=== PATIENT | female | born 1930 | race Caucasian/White ===

== ENCOUNTER 2016-09-26 16:35 | Emergency (ER) | payer OTHER ==
[2016-09-26 17:05] VITALS: BP 132/64; PULSE 86; TEMP 98.1; BMI 19.5
[2016-09-26] MEDS ORDERED: DIPHTH,PERTUSS(ACELL),TET 0.5 ML DISP.SYRIN IM ONE (17:22)
--- NOTE | 2016-09-26 17:24 | PDOC ---
History of Present Illness - General History Source: Patient, Family (daughter) - History of Present Illness Initial Comments: 09/26/16 17:32 The patient is a 86 year old female, accompanied by daughter, with a past medical history or chronic hip pain who presents to the ED with right arm laceration since yesterday. As per daughter, the patient fell and scraped her right arm against a night stand yesterday. Patient denies getting stitches. She also reports her hip pain is worsened secondary to fall. Denies fevers or chills. Denies focal numbness, weakness, or tingling. Denies chest pain or shortness of breath. Denies any other symptoms. 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) Thyroid Disease: Yes - Psycho/Social/Smoking Cessation Hx Anxiety: Yes Suicidal Ideation: No Smoking History: Never smoked Hx Alcohol Use: No Drug/Substance Use Hx: No Substance Use Type: None <Hunter Matthews - Last Filed: 10/08/16 07:35> - Past Medical History Allergies/Adverse Reactions: Allergies Allergy/AdvReac Type Severity Reaction Status Date / Time ciprofloxacin Allergy Severe SEIZURE Verified 09/26/16 16:52 levofloxacin [From Levaquin] Allergy Severe Verified 09/26/16 16:52 Penicillins Allergy Severe Difficulty Verified 09/26/16 16:52 Breathing Home Medications: Ambulatory Orders Amlodipine Besylate 09/26/16 Esomeprazole Magnesium [Nexium 24Hr] 20 mg PO DAILY 09/26/16 Lorazepam [Ativan] 0.5 mg PO HS 09/26/16 Magnesium Oxide 500 mg PO BID 09/26/16 Oxybutynin Chloride 09/26/16 Potassium Chloride 09/26/16 Synthroid 09/26/16 Review of Systems - Review of Systems Able to Perform ROS?: Yes Comments:: 09/26/16 17:33 CONSTITUTIONAL: No reported: Fever, Chills, Diaphoresis, Generalized Weakness, Malaise, Loss of Appetite HEENT: No reported: Rhinorrhea, Nasal Congestion, Throat Pain, Throat Swelling, Difficulty Swallowing, Mouth Swelling, Ear Pain, Eye Pain, Visual Changes CARDIOVASCULAR: No reported: Chest Pain, Syncope, Palpitations, Irregular Heart Rate, Lightheadedness, Peripheral Edema RESPIRATORY: No reported: Cough, Shortness of Breath, SOB with Exertion, Orthopnea, Wheezing , Stridor, Hemoptysis GASTROINTESTINAL: No reported: Abdominal pain, Abdominal Distension, Nausea, Vomiting, Diarrhea, Constipation, Melena, Hematochezia GENITOURINARY: No reported: Dysuria, Frequency, Urgency, Hesitancy, Flank Pain, Genital Pain MUSCULOSKELETAL: No reported: Myalgia, Arthralgia, Joint Swelling, Back pain, Neck Pain SKIN: + right arm laceration No reported: Rash, Itching, Pallor HEMEATOLOGIC/IMMUNOLOGIC: No reported: Easy Bleeding, Easy Bruising, Lymphadenopathy, Frequent infections ENDOCRINE: No reported: Unexplained Weight Gain, Unexplained Weight Loss, Heat Intolerance , Cold Intolerance NEUROLOGIC: No reported: Headache, Focal Weakness, Paresthesias, Vertigo, Lightheadedness, Unsteady Gait, Seizure, Mental Status Changes, Incontinence PSYCHIATRIC: No reported: Anxiety, Depression All Other Systems: Reviewed and Negative <Jacy Christina - Last Filed: 09/26/16 17:32> *Physical Exam - Vital Signs Last Vital Signs Temp Pulse Resp BP Pulse Ox 98.1 F 86 16 132/64 97 09/26/16 16:50 09/26/16 16:50 09/26/16 16:50 09/26/16 16:50 09/26/16 16:50 - Physical Exam Comments: 09/26/16 17:33 GENERAL: Well developed, well nourished. Awake and alert. No acute distress. HEENT: Normocephalic, atraumatic. PERRLA, EOMI. No conjunctival pallor. Sclera are non- icteric. Moist mucous membranes. Oropharynx is clear. NECK: Supple. Full ROM. No JVD. Carotid pulses 2+ and symmetric, without bruits. No thyromegaly. No lymphadenopathy. CARDIOVASCULAR: Regular rate and rhythm. No murmurs, rubs, or gallops. Distal pulses are 2+ and symmetric. PULMONARY: No evidence of respiratory distress. Lungs clear to auscultation bilaterally. No wheezing, rales or rhonchi. ABDOMINAL: Soft. Non-tender. Non-distended. No rebound or guarding. No organomegaly. Normoactive bowel sounds. MUSCULOSKELETAL Normal range of motion at all joints. No bony deformities or tenderness. No CVA tenderness. EXTREMITIES: No cyanosis. No clubbing. No edema. No calf tenderness. SKIN: + 10 cm skin tear of the right lateral ulnar forearm, beginning just below the elbow and not into the bursa. in the skin tear was a 1cm laceration that was superficial, no distal or sensor motor deficits, no swelling, erythema, induration or drainage from the wound that would suggest a fracture or infection in present. no other injuries including injuries to neck, head, chest , abdomen, pelvis, shoulders, hips NEUROLOGICAL: Alert, awake, appropriate. Cranial nerves 2-12 intact. No deficits to light touch and temperature in face, upper extremities and lower extremities. No motor deficits in the in face, upper extremities and lower extremities. Normoreflexic in the upper and lower extremities. Normal speech. Toes are down- going bilaterally. Gait is normal without ataxia. PSYCHIATRIC: Cooperative. Good eye contact. Appropriate mood and affect. <Jacy Christina - Last Filed: 09/26/16 17:32> - Vital Signs Last Vital Signs Temp Pulse Resp BP Pulse Ox 98.1 F 86 16 132/64 97 09/26/16 16:50 09/26/16 16:50 09/26/16 16:50 09/26/16 16:50 09/26/16 16:50 <Hunter Matthews - Last Filed: 10/08/16 07:35> Medical Decision Making - Medical Decision Making 10/08/16 07:33 Procedure note: Repair of laceration Because this was an old injury, primary suture closure was felt to be a risk of infection. Most of the area of the wound was a superficial skin tear, except for approximately 1-2 cm laceration within the skin tear, of the proximal forearm. This was superficial, did not involve any deep structures, there was no devitalized tissue, and no obvious punctures. Neurological exam to the upper extremity was intact. Pulses and capillary refill were normal The wound was scrubbed well and irrigated with normal saline. There was hemostasis. The edges were loosely approximated with Steri-Strips, with good result. Bacitracin was applied, 4 x 4 and Jah were used as dressing, and the patient was advised to return for a wound check in 2 days, sooner if there was increased pain or sign of infection. She was fully ambulatory and in no distress upon discharge with her daughter to follow-up as directed. <Hunter Matthews - Last Filed: 10/08/16 07:35> *DC/Admit/Observation/Transfer - Attestations Scribe Attestion: 09/26/16 17:33 Documentation prepared by Jacy Christina, acting as medical billing specialist for Hunter Rivera MD <Jacy Christina - Last Filed: 09/26/16 17:32> - Discharge Dispostion Admit: No <Hunter Matthews - Last Filed: 10/08/16 07:35> Diagnosis at time of Disposition: Laceration of forearm Qualifiers: Encounter type: sequela Laterality: right Qualified Code(s): S51.811S - Laceration without foreign body of right forearm, sequela - Discharge Dispostion Disposition: HOME Condition at time of disposition: Good - Referrals Referrals: Leon Anderson [Primary Care Provider] - 3 days - Patient Instructions Printed Discharge Instructions: DI for Laceration Repair Steri-Strips Additional Instructions: Keep absolutely clean and dry. Rest and elevate. Recheck immediately if sign of infection. Consider wound check to monitor healing process in 3-4 days.
== END 2016-09-26 17:51 | disposition home or self-care (01) ==
LOC: FER 16:35
PROC: 3E0234Z Introduction of Serum, Toxoid and Vaccine into Muscle, Percutaneous Approach (ICD-10-PCS; principal; 2016-09-26)
DX: S51.811A Laceration without foreign body of right forearm, initial encounter (principal); W18.30XA Fall on same level, unspecified, initial encounter; Y93.9 Activity, unspecified; Y92.9 Unspecified place or not applicable; I10 Essential (primary) hypertension; R56.9 Unspecified convulsions; Z85.3 Personal history of malignant neoplasm of breast; Z85.43 Personal history of malignant neoplasm of ovary
CPT/HCPCS: 90471; 90715; 99281-25

== ENCOUNTER 2016-09-29 11:20 | Emergency (ER) | payer OTHER ==
--- NOTE | 2016-09-29 11:22 | PDOC ---
History of Present Illness - General Chief Complaint: Revisit,Wound Recheck Stated Complaint: RIGHT ELBOW WOUND CHECK Time Seen by Provider: 09/29/16 11:22 - History of Present Illness Initial Comments: 09/29/16 11:56 An 86-year-old female who returns emergency department for reevaluation of her right upper extremity laceration. She was seen in the emergency department 3 days ago. Wound was reapproximated with Steri-Strips and benzoin. Patient has kept the area covered, was asked to return to emergency department for wound check. Patient has noted no drainage, no increased pain. She has had no fevers or chills. Patient is able to move her arm with no difficulty. 09/29/16 11:56 GENERAL/CONSTITUTIONAL: No: fever, chills, weakness, loss of appetite. SKIN: Yes: arm laceration GENERAL: The patient is in no acute distress. EXTREMITIES: Normal range of motion, no edema. No clubbing or cyanosis. No erythema, or tenderness. SKIN: Wound re approximated, no surrounding erythema, no drainage Past History - Past Medical History Allergies/Adverse Reactions: Allergies Allergy/AdvReac Type Severity Reaction Status Date / Time ciprofloxacin Allergy Severe SEIZURE Verified 09/26/16 16:52 levofloxacin [From Levaquin] Allergy Severe Verified 09/26/16 16:52 Penicillins Allergy Severe Difficulty Verified 09/26/16 16:52 Breathing Home Medications: Ambulatory Orders Amlodipine Besylate 09/26/16 Esomeprazole Magnesium [Nexium 24Hr] 20 mg PO DAILY 09/26/16 Lorazepam [Ativan] 0.5 mg PO HS 09/26/16 Magnesium Oxide 500 mg PO BID 09/26/16 Oxybutynin Chloride 09/26/16 Potassium Chloride 09/26/16 Synthroid 09/26/16 Cancer: Yes (BREAST, OVARIAN) GI Disorders: Yes Disorders: Yes HTN: Yes Seizures: Yes (RELATED TO CIPRO) Thyroid Disease: Yes - Psycho/Social/Smoking Cessation Hx Anxiety: Yes Suicidal Ideation: No Smoking History: Never smoked Hx Alcohol Use: No Drug/Substance Use Hx: No Substance Use Type: None Medical Decision Making - Medical Decision Making 09/29/16 11:58 Will discharge to home Will ask pt to avoid getting wound wet Monitor for signs of cellulitis Return to the ER for those signs *DC/Admit/Observation/Transfer Diagnosis at time of Disposition: Laceration of forearm Qualifiers: Encounter type: sequela Laterality: right Qualified Code(s): S51.811S - Laceration without foreign body of right forearm, sequela - Discharge Dispostion Disposition: HOME Condition at time of disposition: Stable Admit: No - Patient Instructions Additional Instructions: Please monitor for signs of infection, surrounding redness, swelling, tenderness , drainage Please monitor for fevers Return to the ER in that case Otherwise, the butterfly sutures will fall off with time You can keep this wound covered but remove dressings once or twice per day and re dress
[2016-09-29 11:53] VITALS: BP 139/61; PULSE 78; TEMP 98.1; BMI 19.3
== END 2016-09-29 12:16 | disposition home or self-care (01) ==
LOC: FER 11:20
DX: Z48.01 Encounter for change or removal of surgical wound dressing (principal); S51.811S Laceration without foreign body of right forearm, sequela; I10 Essential (primary) hypertension; Z85.3 Personal history of malignant neoplasm of breast; Z85.43 Personal history of malignant neoplasm of ovary; E07.9 Disorder of thyroid, unspecified; F41.9 Anxiety disorder, unspecified; Y93.9 Activity, unspecified; Y92.9 Unspecified place or not applicable
CPT/HCPCS: 99281-25